=== PATIENT | male | born 1950 | race Caucasian/White ===

== ENCOUNTER → 2019-02-03 | Day surgery (SDC) | payer MEDICARE ==
[2019-01-30 08:55] LABS: BASOPHILS # (AUTO) 0.1 (0.0-0.1); BASOPHILS % 0.8 % (0.0-1.0); EOSINOPHILS # (AUTO) 0.4 (0.0-0.4); EOSINOPHILS % 4.3 % (0.0-6.0); HEMOGLOBIN 13.1 g/dL (14.0-18.0); LYMPHOCYTES # (AUTO) 1.9 (1.0-3.2); LYMPHOCYTES % 22.5 % (18.0-39.1); MEAN CORPUSCULAR HEMOGLOBIN 32.1 pg (28-32); MEAN CORPUSCULAR HGB CONC 33.6 g/dL (31-35); MEAN CORPUSCULAR VOLUME 95.6 fL (81-99); MONOCYTES # (AUTO) 0.8 (0.2-0.8); MONOCYTES % 9.8 % (4.4-11.3); NEUTROPHILS # (AUTO) 5.2 (2.1-6.9); NEUTROPHILS % 62.2 % (38.7-80.0); PLATELET COUNT 421 x10e3/uL (140-360); RED BLOOD COUNT 4.08 x10e6/uL (4.3-5.7); RED CELL DISTRIBUTION WIDTH 13.6 % (11.7-14.4)
--- NOTE | 2019-01-30 09:03 | Diagnostic Imaging Report ---
Chest, PA and lateral. History: Preoperative evaluation for knee surgery. Comparison: None available. Discussion: The cardiomediastinal silhouette and pulmonary vasculature are within normal limits. The lungs are clear without evidence of consolidation or effusion. There are mild multilevel degenerative changes of the thoracic spine. IMPRESSION: No radiographic evidence of acute cardiopulmonary abnormality. Signed by: Mike Rojas MD on 01/30/2019 8:59 AM
[~2019-02-03] MED LIST: ACETAMINOPHEN 1000 MG/100 ML IV ONE; B12 PO; BACLOFEN10 MG PO; BUPIVACAINE 0.25% 30ML SDV INJ ONE; CEFAZOLIN SOD 1 GM/NS 50ML 100 ML IV ONE; DEXAMETHASONE SOD PHOS INJ 4 MG/ML VIAL ONE; FENTANYL CITRATE/PF 100MCG/2 ML INJ ONE; FLECTOR1 EACH; GABAPENTIN300 MG PO; LIDOCAINE 1% W/EPINEPHRINE 20 ML VIAL ONE; LIDOCAINE HCL 2% LOCAL INJ 5 ML SDV VIAL INJ ONE; LISINOPRIL10 MG PO; MORPHINE SULFAT30 M2 PO; ONDANSETRON HCL INJ 2MG/ML 2ML 2 MG/ML VIAL ONE; PROPOFOL IV EMULSION 10 MG/ML 20 ML VIAL ONE; SEVOFLURANE INHAL SOLN 250 ML PEN BTL ONE; VALACYCLOVIR500 MG PO; ZOLPIDEM TARTRA10 MG PO
--- OUTSIDE RECORDS SUMMARY | 2019-02-03 05:25 | XMS REPORT ---
Author [facility] Address Unknown Phone Unavailable Care Team Providers Care Auto Electrician Name Role Phone Jaun EVANS Unavailable Unavailable Problems This patient has no known problems. Allergies, Adverse Reactions, Alerts This patient has no known allergies or adverse reactions. Medications This patient has no known medications. Results Test Description Test Time Test Comments Text Results Atomic Results Result Comments CHEST 2 VIEWS 2019-01-30 08:57:00 [place] [address] Patient Name: JARON GARIBAY JR MR #: [id number] : 1950 Age/Sex: 68/M Req #: [id number] Adm Physician: Ordered by: JAIME EVANS DO Report #: [id number] Location: OR Room/Bed: Procedure: [id number] DX/CHEST 2 VIEWS Exam Date: 01/30/19 Exam Time: 0840 REPORT STATUS: Signed Chest, PA and lateral. History: Preoperative evaluation for knee surgery. Comparison: None available. Discussion: The cardiomediastinal silhouette and pulmonary vasculature are within normal limits. The lungs are clear without evidence of consolidation or effusion. There are mild multilevel degenerative changes of the thoracic spine. IMPRESSION: No radiographic evidence of acute cardiopulmonary abnormality. Signed by: Mike Godwin MD on 01/30/2019 8:59 AM Dictated By: MIKE GODWIN MD 8 Transcribed By: JR on 01/30/19858 COPY TO: JAIME EVANS DO
[2019-02-03 11:12] VITALS: BP 135/80
--- NOTE | 2019-02-03 16:11 | NUR ---
ORTHOPEDICS OPERATIVE NOTE DATE OF SURGERY: 02/03/19 PREOPERATIVE DIAGNOSES: Right Knee Medial & Lateral Meniscal Tears, Lateral & Patellofemoral Chondromalacia, Impinging Plica POSTOPERATIVE DIAGNOSES: Right Knee Medial & Lateral Meniscal Tears, Lateral & Patellofemoral Chondromalacia, Impinging Plica PROCEDURE: Right Knee Arthroscopic Partial Medial and Lateral Meniscectomy, Chondroplasty, and Partial Synovectomy, Excision of Impinging Plica SURGEON: Vivian Lyn DO ANESTHESIA: General COMPLICATIONS: None TOURNIQUET: Applied but not inflated. No tourniquet EBL: Minimal INDICATIONS: Due to persistent pain and limitations on activity combined with findings on exam and imaging, the patient requests surgical treatment. Nonopera tive care and alternative surgical options were reviewed. We agreed that this provided the best risk/benefit profile for this patient, understanding and accepting risks of recurrent/persistent symptoms, infection, bleeding, stiffness, neurological/vascular damage, failure to improve and anesthetic complication (as reviewed by anesthesia service). Also, the patient understands that arthroscopic treatment of articular cartilage lesions provides temporary incomplete relief but that meniscal symptoms should be well addressed. FINDINGS: RIGHT Knee Patella Grade 2-3 Chondromalacia Trochlea - Grade 2-3 Chondromalacia Lateral Gutter Synovitis Medial Gutter Synovitis Medial Compartment Femoral - Grade 2 Chondromalacia Tibial - Grade 1 Chondromalacia Medial Meniscus - Degenerative peripheral fraying Cruciate region - Intact Lateral Compartment Femoral - Lateral sided Grade 4 Chondromalacia Tibial - Lateral sided Grade 4 Chondromalacia Lateral Meniscus - Body & Posterior horn tearing Synovium - Impinging Plica PROCEDURE: With the patient in the supine position with all prominences well padded, general anesthesia was obtained. Sterile prepping and draping were performed. Antibiotics had been given and a time out performed. After an injection of 1% Lidocaine with Epinephrine in the proposed incision sites, The arthroscope was i nserted via a small lateral parapatellar tendon incision into the patellofemoral space. Under direct visualization, a medial parapatellar tendon portal was created providing a working portal. Diagnostic arthroscopy was performed and the above findings were noted. Within the patellofemoral space, chondromalacia noted above was seen. This was debrided with an arthroscopic shaver. An impinging plica was noted and this was excised. Within the medial compartment, the medial meniscus was debrided to establish a well-balanced rim, removing approximately 20% of the posterior horn of the medial meniscus. A stable border was created. There was grade 2-3 chondromalacia, which was debrided to stable borders. Within the intercondylar space, the ACL was visualized and intact The lateral compartment demonstrated a friable and frayed lateral meniscus with grade 4 Bipolar chondromalacia. This was debrided with an arthroscopic shaver t o a stable border with 80% of the meniscus remaining. Chondroplasty was performed on the trochlea to provide a stable border. The joint was extravasated and .25% marcaine was injected into the knee. The incisions were closed and more local was injected around the portal sites. Steristrips, Xeroform, 4x4s, ABDs and a compressive PORTIA bandage were applied. The patient was awakened and transferred to the PACU in satisfactory condition having tolerated the procedure well.
== END | disposition home or self-care (01) ==
LOC: OR 05:19
PROVIDERS: ATTEND Orthopaedic Surgery
DX: S83.261A Peripheral tear of lateral meniscus, current injury, right knee, initial encounter (principal); S83.221A Peripheral tear of medial meniscus, current injury, right knee, initial encounter; Z01.810 Encounter for preprocedural cardiovascular examination; Z01.812 Encounter for preprocedural laboratory examination; Z01.811 Encounter for preprocedural respiratory examination; Z86.19 Personal history of other infectious and parasitic diseases; M54.9 Dorsalgia, unspecified; M22.41 Chondromalacia patellae, right knee
CPT/HCPCS: 29880; 36415; 71046; 85025; 93005; J0131; J0690; J1100; J2001; J2405; J2704; J3010